=== PATIENT | female | born 1990 ===

== ENCOUNTER 2017-04-26 01:25 | Emergency (ER) | payer MEDICAID ==
[2017-04-26 02:06] VITALS: BMI 26.8
[2017-04-26 02:07] VITALS: BP 139/92; PULSE 90; RESP 16; TEMP 98.2; O2SAT 100
--- NOTE | 2017-04-26 02:28 | ED PDOC ---
Arrival/HPI - General Chief Complaint: Female Genitourinary Time Seen by Provider: 04/26/17 01:51 Historian: Patient - History of Present Illness Narrative History of Present Illness (Text): 04/26/17 02:13 Veronica Mayes is a 27 year old female, currently 4 weeks , who presents to the Emergency department complaining of vaginal bleeding for 2 days with clotting tonight. Patient reports associated lower abdominal cramping and notes her last normal menstrual period was on 03/24/2017. Patient denies any fever, chills, nausea, vomiting, diarrhea, dysuria, back pain, headache, dizziness, or any other complaints. Symptom Onset: Gradual Symptom Course: Unchanged Activities at Onset: Rest, Light Context: Home Past Medical History - Provider Review Nursing Documentation Reviewed: Yes - Cardiac Hx Cardiac Disorders: No - Pulmonary Hx Respiratory Disorders: No - Neurological Hx Neurological Disorder: No - HEENT Hx HEENT Disorder: No - Renal Hx Renal Disorder: No - Endocrine/Metabolic Hx Endocrine Disorders: No - Hematological/Oncological Hx Blood Disorders: No - Integumentary Hx Dermatological Disorder: No - Musculoskeletal/Rheumatological Hx Musculoskeletal Disorders: No - Gastrointestinal Hx Gastrointestinal Disorders: No - Genitourinary/Gynecological Hx Genitourinary Disorders: No - Psychiatric Hx Psychophysiologic Disorder: No Hx Substance Use: No - Anesthesia Hx Anesthesia: No Family/Social History - Physician Review Nursing Documentation Reviewed: Yes Family/Social History: Unknown Family HX Smoking Status: Never Smoked Hx Alcohol Use: No Hx Substance Use: No Allergies/Home Meds Allergies/Adverse Reactions: Allergies No Known Allergies Allergy (Verified 04/26/17 02:06) Physical Exam - Physical Exam Narrative Physical Exam (Text): - Review of Systems Constitutional: Normal. absent: Fatigue, Weight Change, Fevers Eyes: Normal ENT: Normal Respiratory: Normal absent: SOB, Cough, Sputum Cardiovascular: Normal absent: Chest pain, Palpitations, Syncope Gastrointestinal: +lower abdominal cramping absent: Diarrhea, Nausea, Vomiting Genitourinary: +vaginal bleeding. absent: Dysuria, Frequency, Hematuria Musculoskeletal: Normal. absent: Arthralgias, Back Pain, Neck Pain Skin: Normal Neurological: Normal absent: Focal Weakness Endocrine: Normal Hemo/Lymphatic: Normal Psychiatric: Normal - Physical exam Patient appears age appropriate, speaking full sentences without difficulty - Systems Exam Head: Present: Atraumatic, Normocephalic Pupils: Present: PERRL Extraocular Muscles: Present: EOMI Conjunctiva: Present: Normal Mouth: Present: Moist Mucous Membranes Neck: Present: Normal Range of Motion. No: MIDLINE TENDERNESS, Paraspinal Tenderness Respiratory/Chest: Present: Clear to Auscultation, Good Air Exchange. No: Respiratory Distress, Accessory Muscle Use, Tachypneic Cardiovascular: Present: Regular Rate and Rhythm, Normal S1, S2, Peripheral Pulses Present. No: Murmurs Abdomen: Suprapubic tenderness to palpation: Normal Bowel Sounds, No: Peritoneal Signs, Rebound, Guarding, Distention Back: Present: Normal Inspection. No: Midline Tenderness, Paraspinal Tenderness Upper Extremity: Present: Normal Inspection. No: Cyanosis, Edema Lower Extremity: Present: Normal Inspection. No: Edema Neurological: Present: GCS=15, Speech Normal, cranial nerves II through XII fully intact with no cerebellar abnormality, neuro-sensory fully intact. No focal neurological deficits. Skin: Present: Warm, Dry, Normal Color. No: Rashes Psychiatric: Present: Alert, Oriented x 3, Normal Insight, Normal Concentration Vital Signs Reviewed: Yes Vital Signs Temp Pulse Resp BP Pulse Ox 04/26/17 02:06 98.2 F 90 16 139/92 H 100 Temperature: Afebrile Blood Pressure: Normal Pulse: Regular Respiratory Rate: Normal Appearance: Positive for: Well-Appearing, Non-Toxic, Comfortable Pain Distress: None Mental Status: Positive for: Alert and Oriented X 3 Medical Decision Making ED Course and Treatment: 04/26/17 02:13 Impression: 27 year old female complaining of vaginal bleeding for 2 days with clots tonight. On exam, there is suprapubic tenderness. LNMP 03/24 Differential Diagnosis include but are not limited to: miscarriage vs. threatened vs. ectopic Plan: -- Labs, Beta-HCG, blood type and screen -- US Transvaginal -- Reassess and disposition Progress Notes: 04/26/17 03:44 Transvaginal US: Dictated and Authenticated by: Rodrigo Stevenson MD Gestation: No intrauterine gestational sac. Uterus/cervix: Endometrium: 0.3 cm in thickness. Closed cervix. Ovaries: Normal ovaries. No adnexal masses. Free fluid: No significant free fluid. IMPRESSION: 1. No intrauterine gestation. DDX: Early IUP, missed , ectopic . 2. Incidental/non-acute findings are described above. 04/26/17 04:57 pt in no distress states she is currently not in pain urine HCG negative beta quant <3 pt informed that this is likely a miscarriage, but may be an ectopic or very early pt instructed to f/u with her tip length checker by this upcoming Friday for f/u labs and US pt states she feels comfortable being dc'd home with outpatient fu Pt states she understands to return to the ER right away for new or worsening symptoms or for inability to f/u with PMD or specialist as instructed. Patient states that she fully agrees with and understands discharge instructions. States that she agrees with the plan and disposition. Verbalized and repeated discharge instructions and plan. I have given the patient opportunity to ask any additional questions. 04/26/17 07:07 pt O Positive - Lab Interpretations Lab Results: 04/26/17 02:30 04/26/17 02:30 Lab Results 04/26/17 05:40: Blood Type O POSITIVE, Antibody Screen Negative, BBK History Checked No verified bt 04/26/17 02:59: Urine HCG, Qual Negative 04/26/17 02:59: Urine Color Yellow, Urine Appearance Sl cloudy, Urine pH 6.5, Ur Specific Bruni 1.020, Urine Protein Trace H, Urine Glucose (UA) Negative, Urine Ketones Negative, Urine Blood Large H, Urine Nitrate Negative, Urine Bilirubin Negative, Urine Urobilinogen 0.2, Ur Leukocyte Esterase Negative, Urine RBC 2 - 5, Urine WBC 0 - 2, Ur Epithelial Cells 0 - 2 04/26/17 02:30: Beta HCG, Quant < 2.39 04/26/17 02:30: PT 10.7, INR 0.99, APTT 29.0 04/26/17 02:30: WBC 8.4, RBC 4.27, Hgb 12.6, Hct 37.4, MCV 87.6, MCH 29.5, MCHC 33.7, RDW 13.6, Plt Count 250, MPV 11.4 H, Gran % 58.8, Lymph % (Auto) 33.6, [place] % (Auto) 6.8 H, Eos % (Auto) 0.6 L, Baso % (Auto) 0.2, Gran # 4.95, Lymph # 2.8, [place] # 0.6, Eos # 0.1, Baso # 0.02 04/26/17 02:30: Sodium 141, Potassium 3.9, Chloride 104, Carbon Dioxide 27, Anion Gap 14, BUN 14, Creatinine 0.7, Est GFR ( Amer) > 60, Est GFR (Non- Af Amer) > 60, Random Glucose 106, Calcium 10.2, Total Bilirubin 0.5, AST 32, ALT 27, Alkaline Phosphatase 48, Total Protein 7.5, Albumin 4.2, Globulin 3.3, Albumin/Globulin Ratio 1.3 I have reviewed the lab results: Yes - RAD Interpretation Radiology Orders: 04/26/17 02:18 OB TRANSVAGINAL [US] Stat Slab Puller: Radiologist - Scribe Statement The provider has reviewed the documentation as recorded by the Scribyaritza Greene All medical record entries made by the Scribe were at my direction and personally dictated by me. I have reviewed the chart and agree that the record accurately reflects my personal performance of the history, physical exam, medical decision making, and the department course for this patient. I have also personally directed, reviewed, and agree with the discharge instructions and disposition. Disposition/Present on Arrival - Present on Arrival Any Indicators Present on Arrival: No History of DVT/PE: No History of Uncontrolled Diabetes: No Urinary Catheter: No History of Decub. Ulcer: No History Surgical Site Infection Following: None - Disposition Have Diagnosis and Disposition been Completed?: Yes Diagnosis: Uterine bleeding Disposition: HOME/ ROUTINE Disposition Time: 05:00 Patient Plan: Discharge Condition: GOOD Discharge Instructions (ExitCare): Spontaneous Miscarriage (ED), Threatened Miscarriage (ED) Additional Instructions: PLEASE FOLLOW UP WITH YOUR PAST DUE ACCOUNTS CLERK SPECIALIST IN 1-2 DAYS FOR REPEAT ULTRASOUND AND LAB WORK PLEASE RETURN TO THE ER RIGHT AWAY FOR PAIN, BLEEDING, ANY OTHER NEW OR WORSENING SYMPTOMS OR IF YOU CANNOT FOLLOW UP INSTRUCTED Prescriptions: oxyCODONE/Acetaminophen [Percocet 5/325 mg Tab] 1 ea PO QID #12 tab Referrals: Carl Gregory, [Primary Care Provider] - Follow up with primary Jeovanny Blair MD [Medical Doctor] - Follow up with primary Yuly Blair MD [Medical Doctor] - Follow up with primary Taran Blair MD [Medical Doctor] - Follow up with primary Sima Blair MD [Medical Doctor] - Follow up with primary Orion Martinez DO [Staff Provider] - Follow up with primary Forms: WORK NOTE
[2017-04-26 02:38] LABS: ADD MANUAL DIFF? NO
[2017-04-26 02:52] LABS: BASO # 0.02 K/mm3 (0.0-2.0); BASO % 0.2 % (0.0-3.0); EOS # 0.1 (0.0-0.7); EOS % 0.6 % (1.5-5.0); GRAN # 4.95 (1.4-6.5); GRAN % 58.8 % (50.0-68.0); HEMATOCRIT 37.4 % (36.0-48.0); LYMPH # 2.8 (1.2-3.4); LYMPH % 33.6 % (22.0-35.0); MEAN CELL VOLUME 87.6 fL (80.0-105.0); MEAN CORPUSCULAR HEMOGLOBIN 29.5 pg (25.0-35.0); MEAN CORPUSCULAR HGB CONC 33.7 g/dl (31.0-37.0); MEAN PLATELET VOLUME 11.4 fl (7.0-11.0); MONO # 0.6 (0.1-0.6); MONO % 6.8 % (1.0-6.0); PLATELET COUNT 250 10^3/uL (120.0-450.0); RED CELL DISTRIBUTION WIDTH 13.6 % (11.5-14.5); WHITE BLOOD COUNT 8.4 10^3/ul (4.5-11.0)
[2017-04-26 02:54] LABS: ALB/GLOB RATIO 1.3 (1.1-1.8); ALKALINE PHOSPHATASE 48 U/L (38-133); ALT/SGPT 27 U/L (7-56); AST/SGOT 32 U/L (15-39); BILIRUBIN,TOTAL 0.5 mg/dL (0.2-1.3); BLOOD UREA NITROGEN 14 mg/dL (7-21); CALCIUM 10.2 mg/dL (8.4-10.5); CARBON DIOXIDE 27 mmol/L (21-33); CHLORIDE 104 mmol/L (98-107); GFR AFRICAN-AMERICAN > 60; GLUCOSE,RANDOM 106 mg/dL (70-110); INR 0.99 (0.93-1.08); POTASSIUM 3.9 mmol/L (3.6-5.0); SODIUM 141 mmol/L (132-148); TOTAL PROTEIN 7.5 g/dL (5.8-8.3)
[2017-04-26 03:15] LABS: PH,URINE 6.5 (4.7-8.0); URINE BILIRUBIN NEGATIVE (NEGATIVE); URINE BLOOD LARGE (NEGATIVE); URINE GLUCOSE (UA) NEGATIVE (NEGATIVE); URINE KETONE NEGATIVE (NEGATIVE); URINE LEUKOCYTE ESTERASE NEGATIVE Leu/uL (NEGATIVE); URINE PROTEIN TRACE mg/dL (<30 mg/dL); URINE UROBILINOGEN 0.2 E.U./dL (<1 E.U./dL)
[2017-04-26 03:19] LABS: URINE APPEARANCE SL CLOUDY (CLEAR); URINE COLOR YELLOW (YELLOW)
[2017-04-26 03:28] LABS: URINE EPITHELIAL CELLS 0 - 2 /hpf (0-5); URINE WBC 0 - 2 /hpf (0-6)
--- NOTE | 2017-04-26 03:41 | US ---
EXAM: US First Trimester, Transabdominal CLINICAL HISTORY: 27 years old, female; Signs and symptoms; Lmp or gestational age (in weeks): 03/24/2017; Other: Bleeding clots since 3 days; Additional info: , bleeding TECHNIQUE: Real-time transabdominal obstetrical ultrasound of the maternal pelvis and a first trimester with image documentation. COMPARISON: No relevant prior studies available. FINDINGS: Gestation: No intrauterine gestational sac. Uterus/cervix: Endometrium: 0.3 cm in thickness. Closed cervix. Ovaries: Normal ovaries. No adnexal masses. Free fluid: No significant free fluid. IMPRESSION: 1. No intrauterine gestation. DDX: Early IUP, missed , ectopic . 2. Incidental/non-acute findings are described above. EXAM: US , Transvaginal CLINICAL HISTORY: 27 years old, female; Signs and symptoms; Lmp or gestational age (in weeks): 03/24/2017; Other: Bleeding clots since 3 days; Additional info: , bleeding TECHNIQUE: Real-time transvaginal obstetrical ultrasound of the maternal pelvis and a first trimester with image documentation. Transvaginal imaging was used for better evaluation of the fetus and adnexa. COMPARISON: No relevant prior studies available. FINDINGS: Gestation: No intrauterine gestational sac. Uterus/cervix: Endometrium: 0.3 cm in thickness. Closed cervix. Ovaries: Normal ovaries. No adnexal masses. Free fluid: No significant free fluid.
== END 2017-04-26 05:05 | disposition home or self-care (01) ==
LOC: ED 01:25
DX: N93.9 Abnormal uterine and vaginal bleeding, unspecified (principal)